=== PATIENT | male | born 2000 | race Caucasian/White ===

== ENCOUNTER 2018-01-27 15:00 | Emergency (ER) | payer SELFPAY ==
[~2018-01-27 15:00] MED LIST: ALB18R INH; ALBU8.5H12 IH; AZIT-1 PO; AZIT500T47 PO; CEP500 PO; ONDA4TAB PO; PRE20 PO; RANI-366 PO; ROBC PO
--- NOTE | 2018-01-27 15:15 | ER Report ---
History and Physical Time Seen By MD: 15:11 Hx. of Stated Complaint: abd pain with vomiting HPI/ROS CHIEF COMPLAINT: Abdominal pain HISTORY OF PRESENT ILLNESS: This is a 17-year-old male presents to the emergency department for abdominal pain. Patient states that since last night he's had severe abdominal pain more specifically on the right upper and lower quadrants, with nausea vomiting and diarrhea. Patient denies previous abdominal surgeries. No history of Crohn's disease, no gallbladder disease. Patient denies blood in the emesis or stools. No chest pain or shortness of breath. No fevers at home. REVIEW OF SYSTEMS: Respiratory: No cough, no dyspnea. Cardiovascular: No chest pain, no palpitations. Gastrointestinal: As above. Musculoskeletal: No back pain. Allergies: Coded Allergies: No Known Drug Allergies (Unverified , 01/27/18) Home Meds Active Scripts Promethazine Hcl (PROMETHAZINE HCL) 25 Mg Tablet, 25 MG PO Q8H PRN for NAUSEA/VOMITING, #12 TAB 0 Refills Prov:JAYSHREE CARDENAS [facility] 01/27/18 Ondansetron (ZOFRAN ODT) 4 Mg Tab.rapdis, 4 MG PO Q6H PRN for NAUSEA/VOMITING, #20 TAB.CRAIG 0 Refills Prov:JAYSHREE CARDENAS [facility] 01/27/18 Albuterol Sulfate (VENTOLIN HFA) 18 Gm Inh, 2 PUFF INH Q4-6H PRN for SHORTNESS OF BREATH, #1 INH Prov:MELISSA CLEMENTS [facility] 07/19/15 Azithromycin (ZITHROMAX) 250 Mg Tablet, 1 TAB PO QDAY, #6 TAB Take 2 tabs today and then 1 tab a day until gone. Prov:MELISSA CLEMENTS [facility] 07/19/15 Past Medical/Surgical History The patient has a past medical and surgical history of asthma and bronchitis. Reviewed Nurses Notes: Yes Hx Smoking: No Constitutional Vital Sign - Last 24 Hours 01/27/18 01/27/18 01/27/18 01/27/18 15:00 15:03 15:04 15:30 Temp 97.4 Pulse 88 89 74 Resp 18 B/P (MAP) 122/68 (86) 122/68 121/76 (91) Pulse Ox 93 96 94 O2 Delivery Nasal Cannula Room Air Nasal Cannula 01/27/18 01/27/18 01/27/18 01/27/18 16:00 16:05 16:48 17:00 Pulse 86 85 B/P (MAP) 125/64 (84) 103/59 (74) 120/73 (89) Pulse Ox 94 91 O2 Delivery Nasal Cannula Room Air 01/27/18 01/27/18 01/27/18 01/27/18 17:05 17:10 17:30 17:40 Pulse 79 82 82 B/P (MAP) 114/64 (81) Pulse Ox 92 97 95 O2 Delivery Room Air Room Air Room Air Physical Exam General Appearance: The patient is alert, has no immediate need for airway protection and no current signs of toxicity. Eyes: Pupils equal and round no injection. Respiratory: Chest is non tender, lungs are clear to auscultation. Cardiac: regular rate and rhythm, no murmurs, clicks or rubs Gastrointestinal: Abdomen is soft, tenderness to the right upper lower quadrants. Distant but normal bowel sounds, no masses no abdominal bruits. Musculoskeletal: Neck: Neck is supple and non tender. Extremities have full range of motion and are non tender. Skin: No rashes or lesions. DIFFERENTIAL DIAGNOSIS: After history and physical exam differential diagnosis was considered for abdominal pain including but not limited to appendicitis, cholecystitis, gastritis and urinary tract infection. Medical Decision Making Data Points Result Diagram: 01/27/18 1508 01/27/18 1508 Laboratory Hematology Test 01/27/18 15:08 01/27/18 17:13 Red Blood Count 5.80 M/uL (4.00-5.60) Mean Corpuscular Volume 90.0 fL (80.0-96.0) Mean Corpuscular Hemoglobin 31.0 pg (26.0-33.0) Mean Corpuscular Hemoglobin Concent 34.4 g/dL (32.0-36.0) Red Cell Distribution Width 13.9 % (11.5-14.5) Mean Platelet Volume 10.0 fL (7.2-11.1) Neutrophils (%) (Auto) 91.8 % (39.4-72.5) Lymphocytes (%) (Auto) 3.5 % (17.6-49.6) Monocytes (%) (Auto) 4.2 % (4.1-12.4) Eosinophils (%) (Auto) 0.1 % (0.4-6.7) Basophils (%) (Auto) 0.4 % (0.3-1.4) Nucleated RBC Relative Count (auto) 0.2 /100WBC Neutrophils # (Auto) 14.8 K/uL (2.0-7.4) Lymphocytes # (Auto) 0.6 K/uL (1.3-3.6) Monocytes # (Auto) 0.7 K/uL (0.3-1.0) Eosinophils # (Auto) 0.0 K/uL (0.0-0.5) Basophils # (Auto) 0.1 K/uL (0.0-0.1) Nucleated RBC Absolute Count (auto) 0.03 K/uL Peripheral Blood Smear Yes Y/N Sodium Level 140 mmol/L (137-145) Potassium Level 3.7 mmol/L (3.5-5.0) Chloride Level 105 mmol/L (98-107) Carbon Dioxide Level 22 mmol/L (22-30) Blood Urea Nitrogen 14 mg/dl (9-21) Creatinine 0.80 mg/dl (0.66-1.25) Glomerular Filtration Rate Calc > 60.0 Random Glucose 110 mg/dl (75-110) Calcium Level 9.6 mg/dl (8.4-10.2) Total Bilirubin 1.3 mg/dl (0.2-1.3) Aspartate Amino Transf (AST/SGOT) 16 U/L (0-35) Alanine Aminotransferase (ALT/SGPT) 28 U/L (0-56) Alkaline Phosphatase 84 U/L (0-126) Total Protein 7.6 g/dl (6.3-8.2) Albumin 4.6 g/dl (3.5-5.0) Lipase 61 U/L (23-300) Urine Color Straw Urine Clarity Clear Urine pH 6.0 pH (4.8-9.5) Urine Specific [place] 1.046 Urine Protein Negative mg/dL (NEGATIVE) Urine Glucose (UA) Negative mg/dL (NEGATIVE) Urine Ketones Negative mg/dL (NEGATIVE) Urine Blood Negative (NEGATIVE) Urine Nitrite Negative (NEGATIVE) Urine Bilirubin Negative (NEGATIVE) Urine Urobilinogen Negative mg/dL (0.2-1.9) Urine Leukocyte Esterase Negative (NEGATIVE) Urine RBC None /HPF (0-2/HPF) Urine WBC None /HPF (0-5/HPF) Urine Squamous Epithelial Cells Few /LPF (</=FEW) Urine Bacteria Negative /HPF (NONE-FEW) Urine Mucus None /HPF (NONE-FEW) Chemistry Test 01/27/18 15:08 01/27/18 17:13 White Blood Count 16.1 k/uL (4.5-11.0) Red Blood Count 5.80 M/uL (4.00-5.60) Hemoglobin 18.0 g/dL (14.0-18.0) Hematocrit 52.2 % (42.0-52.0) Mean Corpuscular Volume 90.0 fL (80.0-96.0) Mean Corpuscular Hemoglobin 31.0 pg (26.0-33.0) Mean Corpuscular Hemoglobin Concent 34.4 g/dL (32.0-36.0) Red Cell Distribution Width 13.9 % (11.5-14.5) Platelet Count 58 K/uL (150-450) Mean Platelet Volume 10.0 fL (7.2-11.1) Neutrophils (%) (Auto) 91.8 % (39.4-72.5) Lymphocytes (%) (Auto) 3.5 % (17.6-49.6) Monocytes (%) (Auto) 4.2 % (4.1-12.4) Eosinophils (%) (Auto) 0.1 % (0.4-6.7) Basophils (%) (Auto) 0.4 % (0.3-1.4) Nucleated RBC Relative Count (auto) 0.2 /100WBC Neutrophils # (Auto) 14.8 K/uL (2.0-7.4) Lymphocytes # (Auto) 0.6 K/uL (1.3-3.6) Monocytes # (Auto) 0.7 K/uL (0.3-1.0) Eosinophils # (Auto) 0.0 K/uL (0.0-0.5) Basophils # (Auto) 0.1 K/uL (0.0-0.1) Nucleated RBC Absolute Count (auto) 0.03 K/uL Peripheral Blood Smear Yes Y/N Glomerular Filtration Rate Calc > 60.0 Calcium Level 9.6 mg/dl (8.4-10.2) Total Bilirubin 1.3 mg/dl (0.2-1.3) Aspartate Amino Transf (AST/SGOT) 16 U/L (0-35) Alanine Aminotransferase (ALT/SGPT) 28 U/L (0-56) Alkaline Phosphatase 84 U/L (0-126) Total Protein 7.6 g/dl (6.3-8.2) Albumin 4.6 g/dl (3.5-5.0) Lipase 61 U/L (23-300) Urine Color Straw Urine Clarity Clear Urine pH 6.0 pH (4.8-9.5) Urine Specific [place] 1.046 Urine Protein Negative mg/dL (NEGATIVE) Urine Glucose (UA) Negative mg/dL (NEGATIVE) Urine Ketones Negative mg/dL (NEGATIVE) Urine Blood Negative (NEGATIVE) Urine Nitrite Negative (NEGATIVE) Urine Bilirubin Negative (NEGATIVE) Urine Urobilinogen Negative mg/dL (0.2-1.9) Urine Leukocyte Esterase Negative (NEGATIVE) Urine RBC None /HPF (0-2/HPF) Urine WBC None /HPF (0-5/HPF) Urine Squamous Epithelial Cells Few /LPF (</=FEW) Urine Bacteria Negative /HPF (NONE-FEW) Urine Mucus None /HPF (NONE-FEW) Urinalysis Test 01/27/18 17:13 Urine Color Straw Urine Clarity Clear Urine pH 6.0 pH (4.8-9.5) Urine Specific [place] 1.046 Urine Protein Negative mg/dL (NEGATIVE) Urine Glucose (UA) Negative mg/dL (NEGATIVE) Urine Ketones Negative mg/dL (NEGATIVE) Urine Blood Negative (NEGATIVE) Urine Nitrite Negative (NEGATIVE) Urine Bilirubin Negative (NEGATIVE) Urine Urobilinogen Negative mg/dL (0.2-1.9) Urine Leukocyte Esterase Negative (NEGATIVE) Urine RBC None /HPF (0-2/HPF) Urine WBC None /HPF (0-5/HPF) Urine Squamous Epithelial Cells Few /LPF (</=FEW) Urine Bacteria Negative /HPF (NONE-FEW) Urine Mucus None /HPF (NONE-FEW) EKG/Imaging Imaging Location: [facility] - [place], [place] Patient: Bird Caal : 2000 Visit/Account:[id number] Date of Sevice: 01/27/2018 ABDOMEN/PELVIS WITH CONTRAST HISTORY: ruq and rlq pain TECHNIQUE: Following administration of IV contrast contiguous axial images acquired through the abdomen/pelvis. Coronal and sagittal reformatting also performed.Dose Lowering Technique One of the following dose optimization techniques was utilized in the performance of this exam: Automated exposure control; adjustment of the mA and/or kV according to the patient's size; or use of an iterative reconstruction technique. Specific details can be referenced in the facility's radiology CT exam operational policy. CONTRAST: 75 mL Isovue-370 COMPARISON: None. FINDINGS: Visualized lung bases: Negative. Hepatobiliary: Negative. Spleen: Negative. Adrenals: Negative. Pancreas: Negative. Kidneys ureters or bladder: Negative. Genitalia: Negative. GI: The appendix is visualized and does not appear inflamed Vessels/spaces/nodes: Negative. Bones/soft tissues: Incidental Schmorl's nodes in the thoracolumbar spine Additional findings: None pertinent. IMPRESSION: No CT findings to account for patient's right upper and right lower quadrant pain Report Dictated By: Radha Solares MD at 01/27/2018 5:00 PM Report E-Signed By: Radha Solares MD at 01/27/2018 5:06 PM WSN:[email or web address] ED Course/Re-evaluation Clinical Indication for ER IV: Hydration, IV Access ED Course The patient was admitted to room. A history and physical were obtained. Differential diagnoses were considered. An IV was started. A CBC, CMP and lipase were obtained. CBC showing white count 16.1 with a left shift, negative chemistry negative UA. The elevation in white count is likely from vomiting and diarrhea. The patient was given a 1 L normal saline bolus. 4 mg IV Zofran, 4 mg IV morphine which did cause dizziness, and the pain did seem to improve with the morphine. And the pain did return he was given 50 g IV fentanyl. I did try to localize the pain after the IV medications however the patient was still uncomfortable, therefore we discussed imaging, the patient did agree to a CT of the abdomen and pelvis. CT of the abdomen and pelvis was unremarkable. I did review these results with the patient. Patient was also given an additional 4 mg IV Zofran. I did tell the patient that this is likely a viral gastroenteritis and will pass. I did recommend follow up with his PCP in one week for reevaluation. He was sent home with an Rx for Zofran and Phenergan, take Ibup rofen or Tylenol as needed for pain. He was in agreement with this plan of care and discharged home. Decision to Disposition Date: Jan 27, 2018 Decision to Disposition Time: 17:44 Depart Departure Latest Vital Signs Vital Signs Date Time Temp Pulse Resp B/P (MAP) Pulse Ox O2 Delivery O2 Flow Rate FiO2 01/27/18 17:40 82 95 Room Air 01/27/18 17:30 114/64 (81) 01/27/18 15:04 97.4 18 Impression: Primary Impression: Gastroenteritis Condition: Improved Disposition: HOME OR SELF-CARE Referrals: [facility] (PCP) 1 Week New Scripts Promethazine Hcl (PROMETHAZINE HCL) 25 Mg Tablet 25 MG PO Q8H PRN for NAUSEA/VOMITING, #12 TAB 0 Refills Prov: JAYSHREE CARDENAS [facility] 01/27/18 Ondansetron (ZOFRAN ODT) 4 Mg Tab.rapdis 4 MG PO Q6H PRN for NAUSEA/VOMITING, #20 TAB.CRAIG 0 Refills Prov: JAYSHREE CARDENAS [facility] 01/27/18 Patient Instructions: Clear Liquid Diet (ED), Gastroenteritis (ED) Additional Instructions: I would recommend a clear liquid diet for the next 24-48 hours. Then slowly transition herself into items that are easily digestible such as rice and noodles. Take the Zofran every 4-6 hours as needed for nausea. If no improvement with the Zofran try the Phenergan every 8 hours as needed for nausea and vomiting. Due be aware that the Phenergan causes severe drowsiness. Get plenty of rest. Take ibuprofen or Tylenol as needed for aches and pains. Follow-up with your primary care provider within one to 2 weeks for reevaluation if no improvement. Return to the ER for any other concerns or worsening symptoms. JAYSHREE CARDENAS [facility] Jan 27, 2018 15:15
[2018-01-27] MEDS ORDERED: NS(*) 0.9% 1000 ML BAG 1,000 ML IV ONE (15:26)
[2018-01-27] MEDS ORDERED: ONDANSETRON 4 MG/2 ML VIAL IVP ONE ×2 (15:30→17:45)
[2018-01-27] MEDS ORDERED: MORPHINE 4 MG/ML SDV IVP ONE ×2 (15:30→16:00)
[2018-01-27 15:55] LABS: PLATELET COUNT, AUTOMATED 58 K/uL (150-450)
[2018-01-27] MEDS ORDERED: fentaNYL CITR 100 MCG/2 ML AMP IVP ONE (16:05)
[2018-01-27] MEDS ORDERED: IOPAMIDOL 76% 75 ML INFUS BTL 75 ML ONE (16:14)
--- NOTE | 2018-01-27 17:11 | RADIOLOGY IMAGING REPORT ---
FACILITY: [facility] - [place] PATIENT NAME: Bird Caal : 2000 MR: [id number] V: [id number] EXAM DATE: [id number] ORDERING PHYSICIAN: JAYSHREE CARDENAS TECHNOLOGIST: Location: [facility] [place] Patient: Bird Caal : 2000 Visit/Account:[id number] Date of Sevice: 01/27/2018 ABDOMEN/PELVIS WITH CONTRAST HISTORY: ruq and rlq pain TECHNIQUE: Following administration of IV contrast contiguous axial images acquired through the abdom en/pelvis. Coronal and sagittal reformatting also performed.Dose Lowering Technique One of the following dose optimization techniques was utilized in the performance of this exam: Autom ated exposure control; adjustment of the mA and/or kV according to the patient's size; or use of an i terative reconstruction technique. Specific details can be referenced in the facility's radiology C T exam operational policy. CONTRAST: 75 mL Isovue-370 COMPARISON: None. FINDINGS: Visualized lung bases: Negative. Hepatobiliary: Negative. Spleen: Negative. Adrenals: Negative. Pancreas: Negative. Kidneys ureters or bladder: Negative. Genitalia: Negative. GI: The appendix is visualized and does not appear inflamed Vessels/spaces/nodes: Negative. Bones/soft tissues: Incidental Schmorl's nodes in the thoracolumbar spine Additional findings: None pertinent. IMPRESSION: No CT findings to account for patient's right upper and right lower quadrant pain Report Dictated By: Radha Solares MD at 01/27/2018 5:00 PM Report E-Signed By: Radha Solares MD at 01/27/2018 5:06 PM WSN:[email or web address]
[2018-01-27 17:30] VITALS: BP 114/64
[2018-01-27] MEDS ORDERED: PROM-110 PO (17:45)
[2018-01-27] MEDS ORDERED: ONDA4TAB PO (17:45)
== END 2018-01-27 18:11 | disposition home or self-care (01) ==
LOC: ER 15:33
DX: K52.9 Noninfective gastroenteritis and colitis, unspecified (principal)
CPT/HCPCS: 74177; 81001; 83690; 85025; 96361; 96374; 96375; 96376; 99284; J2270; J2405; J3010; J7030; Q9967; 82040; 82247; 82310; 82374; 82435; 82565; 82947; 84075; 84132; 84155; 84295; 84450; 84460; 84520